=== PATIENT | female | born 1985 | race Two or more races ===

== ENCOUNTER → 2020-06-02 | Emergency (ER) | payer OTHER ==
[~2020-06-02] VITALS: Ht 170.2 cm; Wt 87.5 kg
== END | disposition home or self-care (01) ==
LOC: ER 18:16
DX: S00.83XA Contusion of other part of head, initial encounter (principal); S80.02XA Contusion of left knee, initial encounter; W18.39XA Other fall on same level, initial encounter; Y93.01 Activity, walking, marching and hiking; Y92.480 Sidewalk as the place of occurrence of the external cause; Y99.8 Other external cause status

== ENCOUNTER 2021-08-10 13:39 | Inpatient (IN) | payer OTHER ==
[~2021-08-10] VITALS: Ht 170.2 cm; Wt 89.4 kg
--- NOTE | 2021-08-10 13:59 | NUR ---
SE RECIBE PTE FEMENINA DE 36 ANOS ALERTA Y ORIENTADA X3. PTE REFIERE JACKSON REUMATOLOGO LE ORDENO PASAR A JENNIFER EMERGENCIA DEBIDO A RESULTADOS DEL LABORATORIO INDICANDO BAJO CONTEO DE PLAQUETAS. SE ALEX SIGNOS VITALES Y SE TRASPORTA A CAMA 7.
--- NOTE | 2021-08-10 15:48 | NUR ---
PTE FEMENINA ES EVALUADA POR . SE ORIENTA SOBRE ORDENES DE [place] REFIERE COMPRENDER. SE EXTRAEN MUESTRAS DE LABORATORIOS Y SE CANALIZA VENA BAJO MEDIDAD ASEPTICAS. SE ADMINISTRAN LIQUIDOS INTRAVENSOS, BAJO MEDIDAS ASEPTICAS. PTE MANEJADA PRO RN BATISTA.
== END 2021-08-19 15:14 | disposition home or self-care (01) | DRG 813 ==
LOC: ER 13:39 → MEDJ 22:52 → SEC-K 22:52 → MEDJ 08-11 17:54
PROVIDERS: ADMIT Internal Medicine; ATTEND Internal Medicine
PROC: 30233R1 Transfusion of Nonautologous Platelets into Peripheral Vein, Percutaneous Approach (ICD-10-PCS; principal; 2021-08-11)
DX: D69.6 Thrombocytopenia, unspecified (principal); M33.20 Polymyositis, organ involvement unspecified; D68.8 Other specified coagulation defects; E53.8 Deficiency of other specified B group vitamins; Z20.822 Contact with and (suspected) exposure to COVID-19

== ENCOUNTER 2021-09-16 07:01 | Outpatient (CLI) | payer OTHER | END 2021-09-16 07:03 | disposition home or self-care (01) | LOC: LAB 07:01 | PROVIDERS: ATTEND Internal Medicine Hematology & Oncology | DX: M32.19 Other organ or system involvement in systemic lupus erythematosus (principal); M33.12 Other dermatomyositis with myopathy; D50.8 Other iron deficiency anemias; R79.9 Abnormal finding of blood chemistry, unspecified; I10 Essential (primary) hypertension; R74.02 Elevation of levels of lactic acid dehydrogenase [LDH]; K76.89 Other specified diseases of liver; M33.22 Polymyositis with myopathy; D69.6 Thrombocytopenia, unspecified; D68.32 Hemorrhagic disorder due to extrinsic circulating anticoagulants; D51.3 Other dietary vitamin B12 deficiency anemia; M35.89 Other specified systemic involvement of connective tissue ==

== ENCOUNTER 2021-10-18 09:55 | Outpatient (CLI) | payer OTHER ==
[2021-10-18] MEDS ORDERED: PREDNISONE 10 MG (18:35)
[2021-10-19] MEDS ORDERED: PROAIR HFA8.5 GM (08:27)
[2021-10-19] MEDS ORDERED: PREDNISONE10 M2 (08:27)
[2021-10-19] MEDS ORDERED: WIXELA 250-501 EACH (08:27)
[2021-10-19] MEDS ORDERED: CYANOCOBAL1000 MCG/1 (08:27)
== END 2021-10-18 13:31 | disposition home or self-care (01) ==
LOC: LAB 09:55
PROVIDERS: ATTEND Internal Medicine Hematology & Oncology
DX: D50.8 Other iron deficiency anemias (principal); R79.9 Abnormal finding of blood chemistry, unspecified; I10 Essential (primary) hypertension; R74.02 Elevation of levels of lactic acid dehydrogenase [LDH]; K76.89 Other specified diseases of liver; M33.22 Polymyositis with myopathy; M35.89 Other specified systemic involvement of connective tissue; D69.6 Thrombocytopenia, unspecified; D68.32 Hemorrhagic disorder due to extrinsic circulating anticoagulants; D51.3 Other dietary vitamin B12 deficiency anemia

== ENCOUNTER 2021-10-18 16:27 | Inpatient (IN) | payer OTHER ==
[~2021-10-18] VITALS: Ht 172.7 cm; Wt 93.4 kg
--- NOTE | 2021-10-18 18:32 | NUR ---
PTE SE RECIBE POR PLAQUETAS BAJAS REFIERE PTE.
[2021-10-18] MEDS ORDERED: PREDNISONE 10 MG (18:35)
--- NOTE | 2021-10-18 20:44 | NUR ---
PTE ALERTA Y ORIENTADA X3 EN JOHANN CON BARANDAS ELEVADAS. SE LE ALEX MUESTRAS DE LAB. RONNY ORDEN MEDICA BAJO MEDIDAS ASEPTICAS. SE CANALIZA EN MANO DERECHA AREA SHAMAR DE EDEMA Y DE ENROJECIMIENTO. SE LE ADMINISTRAN MEDICAMENTOS Y SE EDUCA SOBRE TRATAMIENTO MEDICO. SE LLAMA A BANCO DE VJ Y SE LE NOTIFICA A ORDEN DE TRANSFUSE 10 UNIT PLATELETS A LAS 7:51PM. SE ALEX TUBOS PILOTOS Y SE LLEVAN A LABORATORIO. PTE FIRMA CONSENTIMIENTO PARA TRANSFUSION DE VJ.
[2021-10-19] MEDS ORDERED: CYANOCOBAL1000 MCG/1 (08:27)
[2021-10-19] MEDS ORDERED: PROAIR HFA8.5 GM (08:27)
[2021-10-19] MEDS ORDERED: WIXELA 250-501 EACH (08:27)
[2021-10-19] MEDS ORDERED: PREDNISONE10 M2 (08:27)
== END 2021-10-22 17:08 | disposition home or self-care (01) | DRG 547 ==
LOC: ER 16:27 → MEDI 23:14
PROVIDERS: ADMIT Internal Medicine; ATTEND Internal Medicine
PROC: 30233R1 Transfusion of Nonautologous Platelets into Peripheral Vein, Percutaneous Approach (ICD-10-PCS; principal; 2021-10-19)
PROC: 30233N1 Transfusion of Nonautologous Red Blood Cells into Peripheral Vein, Percutaneous Approach (ICD-10-PCS; 2021-10-19)
DX: M33.20 Polymyositis, organ involvement unspecified (principal); D69.6 Thrombocytopenia, unspecified

== ENCOUNTER 2021-10-31 11:22 | Outpatient (CLI) | payer OTHER ==
[~2021-10-31 11:22] MED LIST: CYANOCOBAL1000 MCG/1; PREDNISONE 10 MG; PREDNISONE10 M2; PROAIR HFA8.5 GM; WIXELA 250-501 EACH
== END 2021-10-31 13:05 | disposition home or self-care (01) ==
LOC: LAB 11:22
PROVIDERS: ATTEND Internal Medicine Hematology & Oncology
DX: D50.8 Other iron deficiency anemias (principal); R79.9 Abnormal finding of blood chemistry, unspecified; I10 Essential (primary) hypertension; R74.02 Elevation of levels of lactic acid dehydrogenase [LDH]; K76.89 Other specified diseases of liver; M33.22 Polymyositis with myopathy; D69.6 Thrombocytopenia, unspecified; D68.32 Hemorrhagic disorder due to extrinsic circulating anticoagulants; D51.3 Other dietary vitamin B12 deficiency anemia; M35.89 Other specified systemic involvement of connective tissue; M33.12 Other dermatomyositis with myopathy

== ENCOUNTER 2021-11-17 07:17 | Outpatient (CLI) | payer OTHER | END 2021-11-17 07:36 | disposition home or self-care (01) | LOC: LAB 07:17 | PROVIDERS: ATTEND Internal Medicine Hematology & Oncology | DX: D69.6 Thrombocytopenia, unspecified (principal); E78.00 Pure hypercholesterolemia, unspecified ==

== ENCOUNTER 2021-12-19 10:26 | Outpatient (CLI) | payer OTHER | END 2021-12-19 11:31 | disposition home or self-care (01) | LOC: LAB 10:26 | PROVIDERS: ATTEND Internal Medicine Hematology & Oncology | DX: M33.20 Polymyositis, organ involvement unspecified (principal); D69.49 Other primary thrombocytopenia; E55.9 Vitamin D deficiency, unspecified; Z13.29 Encounter for screening for other suspected endocrine disorder; M32.19 Other organ or system involvement in systemic lupus erythematosus; M33.12 Other dermatomyositis with myopathy; D50.8 Other iron deficiency anemias; D69.6 Thrombocytopenia, unspecified; D68.8 Other specified coagulation defects; D69.1 Qualitative platelet defects; M33.22 Polymyositis with myopathy; M35.89 Other specified systemic involvement of connective tissue; D68.32 Hemorrhagic disorder due to extrinsic circulating anticoagulants; D51.3 Other dietary vitamin B12 deficiency anemia ==

== ENCOUNTER 2021-12-23 14:08 | Outpatient (CLI) | payer OTHER | END 2021-12-23 14:11 | disposition home or self-care (01) | LOC: LAB 14:08 | PROVIDERS: ATTEND Internal Medicine | DX: M33.20 Polymyositis, organ involvement unspecified (principal); D69.49 Other primary thrombocytopenia; E55.9 Vitamin D deficiency, unspecified; Z13.29 Encounter for screening for other suspected endocrine disorder ==

== ENCOUNTER 2021-12-31 07:51 | Outpatient (CLI) | payer OTHER | END 2021-12-31 08:01 | disposition home or self-care (01) | LOC: LAB 07:51 | PROVIDERS: ATTEND Internal Medicine | DX: D68.8 Other specified coagulation defects (principal); D64.9 Anemia, unspecified; I73.00 Raynaud's syndrome without gangrene ==

== ENCOUNTER 2022-02-22 06:21 | Outpatient (CLI) | payer OTHER ==
[~2022-02-22 06:21] MED LIST changes: -PREDNISONE10 M2; +PREDNISONE10 M2 PO
== END 2022-02-22 06:22 | disposition home or self-care (01) ==
LOC: LAB 06:21
PROVIDERS: ATTEND Internal Medicine Hematology & Oncology
DX: D50.8 Other iron deficiency anemias (principal); D69.6 Thrombocytopenia, unspecified; I10 Essential (primary) hypertension; R74.02 Elevation of levels of lactic acid dehydrogenase [LDH]; K76.89 Other specified diseases of liver; M33.22 Polymyositis with myopathy; M35.89 Other specified systemic involvement of connective tissue; D68.32 Hemorrhagic disorder due to extrinsic circulating anticoagulants; D51.3 Other dietary vitamin B12 deficiency anemia; M32.19 Other organ or system involvement in systemic lupus erythematosus; M33.12 Other dermatomyositis with myopathy

== ENCOUNTER 2022-02-23 10:48 | Inpatient (IN) | payer OTHER ==
[~2022-02-23] VITALS: Ht 170.2 cm; Wt 104.3 kg
--- NOTE | 2022-02-23 11:36 | NUR ---
PTE ALERTA Y ORIENTADA EN RAEGAN MELISSA ESFERAS, REFIERE SHANIQUA SIDO REFERIDA A ER POR PLT BAJAS (20,000) RONNY LABORATORIOS REALIZADOS EN EL FREDA DE EMILEE. AL MOMENTO NO REFIERE SINTOMAS. SE UBICA EN AREA DE OBSERVACION.
--- NOTE | 2022-02-23 12:19 | NUR ---
PTE EVALUADA POR EL DR JEAN QUIEN ORDENA EL [place]. SE ORIENTA SOBRE EL TX ORDENADO, LO CUAL REFIERE ENTENDER, SE REALIZAN PRUEBAS DE LABORATORIO Y SE ADMINISTRA MEDICAMENTO RONNY ORDEN MEDICA Y SIGUIENDO MEDIDAS ASEPTICAS. PENDIENTE CONSULTA CON DR Sammy BATISTA. SE MANTIENE BAJO OBSERVACION.
[2022-02-24] MEDS ORDERED: HYDROCORTISONE-57 GM (08:15)
[2022-02-24] MEDS ORDERED: ONDANSETRON4 MG/2 M5 (08:15)
[2022-02-27] MEDS ORDERED: PEPCID AC20 MG PO (08:23)
[2022-02-27] MEDS ORDERED: PREDNISONE20 MG PO (08:23)
[2022-02-27] MEDS ORDERED: PROTONIX40 MG PO (08:24)
== END 2022-02-27 11:35 | disposition home or self-care (01) | DRG 813 ==
LOC: ER 10:48 → SURH 16:21 → MEDI 16:21 → SURH 21:03
PROVIDERS: ADMIT Internal Medicine; ATTEND Internal Medicine
PROC: B020ZZZ Computerized Tomography (CT Scan) of Brain (ICD-10-PCS; principal; 2022-02-23)
DX: D69.3 Immune thrombocytopenic purpura (principal); M33.20 Polymyositis, organ involvement unspecified; K62.5 Hemorrhage of anus and rectum; K64.9 Unspecified hemorrhoids; D51.3 Other dietary vitamin B12 deficiency anemia; R51.9 Headache, unspecified; Z20.822 Contact with and (suspected) exposure to COVID-19

== ENCOUNTER 2022-03-21 07:19 | Outpatient (CLI) | payer OTHER ==
[~2022-03-21 07:19] MED LIST changes: +HYDROCORTISONE-57 GM; +ONDANSETRON4 MG/2 M5; +PEPCID AC20 MG PO; +PREDNISONE20 MG PO; +PROTONIX40 MG PO
== END 2022-03-21 07:27 | disposition home or self-care (01) ==
LOC: LAB 07:19
PROVIDERS: ATTEND Internal Medicine Hematology & Oncology
DX: D69.3 Immune thrombocytopenic purpura (principal)

== ENCOUNTER 2022-04-26 07:04 | Outpatient (CLI) | payer OTHER | END 2022-04-26 07:13 | disposition home or self-care (01) | LOC: LAB 07:04 | PROVIDERS: ATTEND Internal Medicine Hematology & Oncology | DX: D69.49 Other primary thrombocytopenia (principal); M35.89 Other specified systemic involvement of connective tissue ==

== ENCOUNTER → 2022-06-05 06:26 | Outpatient (CLI) | payer OTHER | END | disposition home or self-care (01) | LOC: LAB 06:26 | PROVIDERS: ATTEND Internal Medicine Hematology & Oncology | DX: D69.6 Thrombocytopenia, unspecified (principal) ==

== ENCOUNTER 2022-06-19 07:00 | Outpatient (CLI) | payer OTHER | END 2022-06-19 08:18 | disposition home or self-care (01) | LOC: LAB 07:00 | PROVIDERS: ATTEND Internal Medicine Hematology & Oncology | DX: D50.8 Other iron deficiency anemias (principal); I10 Essential (primary) hypertension; R74.02 Elevation of levels of lactic acid dehydrogenase [LDH]; K76.89 Other specified diseases of liver; D68.8 Other specified coagulation defects; M33.22 Polymyositis with myopathy; M35.89 Other specified systemic involvement of connective tissue; D69.6 Thrombocytopenia, unspecified; D68.32 Hemorrhagic disorder due to extrinsic circulating anticoagulants; D51.3 Other dietary vitamin B12 deficiency anemia; I71.00 Dissection of unspecified site of aorta ==

== ENCOUNTER → 2022-07-18 06:59 | Outpatient (CLI) | payer OTHER | END | disposition home or self-care (01) | LOC: LAB 06:59 | PROVIDERS: ATTEND Internal Medicine Hematology & Oncology | DX: D50.8 Other iron deficiency anemias (principal); I10 Essential (primary) hypertension; R74.02 Elevation of levels of lactic acid dehydrogenase [LDH]; K76.89 Other specified diseases of liver; D69.6 Thrombocytopenia, unspecified; M33.22 Polymyositis with myopathy; M35.89 Other specified systemic involvement of connective tissue; D68.32 Hemorrhagic disorder due to extrinsic circulating anticoagulants; D51.3 Other dietary vitamin B12 deficiency anemia; I73.00 Raynaud's syndrome without gangrene; E03.9 Hypothyroidism, unspecified ==

== ENCOUNTER 2022-07-28 07:09 | Outpatient (CLI) | payer OTHER | END 2022-07-28 07:11 | disposition home or self-care (01) | LOC: LAB 07:09 | PROVIDERS: ATTEND Surgery | DX: K62.5 Hemorrhage of anus and rectum (principal); K64.2 Third degree hemorrhoids; K62.89 Other specified diseases of anus and rectum; K64.4 Residual hemorrhoidal skin tags ==

== ENCOUNTER 2022-08-06 15:20 | Emergency (ER) | payer OTHER ==
[~2022-08-06] VITALS: Ht 170.2 cm; Wt 111.1 kg
[~2022-08-06 15:20] MED LIST changes: +OXYC1TAB9 PO
== END 2022-08-06 16:47 | disposition home or self-care (01) ==
LOC: ER 15:20
DX: R33.9 Retention of urine, unspecified (principal)

== ENCOUNTER 2022-08-08 16:24 | Emergency (ER) | payer OTHER ==
[~2022-08-08] VITALS: Ht 175.3 cm; Wt 111.1 kg
== END 2022-08-09 00:28 | disposition home or self-care (01) ==
LOC: ER 16:24
DX: R33.9 Retention of urine, unspecified (principal)

== ENCOUNTER 2022-08-31 09:43 | Outpatient (CLI) | payer OTHER | END 2022-08-31 09:55 | disposition home or self-care (01) | LOC: LAB 09:43 | PROVIDERS: ATTEND Internal Medicine Hematology & Oncology | DX: D50.8 Other iron deficiency anemias (principal); I10 Essential (primary) hypertension; R74.02 Elevation of levels of lactic acid dehydrogenase [LDH]; K76.89 Other specified diseases of liver; D68.8 Other specified coagulation defects; D69.1 Qualitative platelet defects; M33.22 Polymyositis with myopathy; M35.89 Other specified systemic involvement of connective tissue; D69.6 Thrombocytopenia, unspecified; D68.32 Hemorrhagic disorder due to extrinsic circulating anticoagulants; D51.3 Other dietary vitamin B12 deficiency anemia; I73.00 Raynaud's syndrome without gangrene; M33.12 Other dermatomyositis with myopathy; M32.19 Other organ or system involvement in systemic lupus erythematosus; E28.9 Ovarian dysfunction, unspecified ==

== ENCOUNTER 2022-09-06 08:56 | Outpatient (CLI) | payer OTHER | END 2022-09-06 09:09 | disposition home or self-care (01) | LOC: SONOGRAMA 08:56 | PROVIDERS: ATTEND Obstetrics & Gynecology Reproductive Endocrinology | DX: N93.8 Other specified abnormal uterine and vaginal bleeding (principal) ==

== ENCOUNTER → 2023-02-05 06:44 | Outpatient (CLI) | payer OTHER ==
[2023-02-05 08:36] LABS: HEMATOCRIT 37.9 % (36.0-45.00); HEMOGLOBIN 12.6 g/dL (12.0-15.00); MEAN CORPUSCULAR HEMOGLOBIN 27.5 pg (27.00-32.0); MEAN CORPUSCULAR HGB CONC 33.2 g/dl (32.0-36.0); PLATELET COUNT 296 K/uL (150-450); RED BLOOD COUNT 4.57 M/uL (4.00-6.00); RED CELL DISTRIBUTION WIDTH 14.8 % (11.5-14.5)
[2023-02-05 09:03] LABS: % SATURACION 6.6 % (15-50); ALBUMIN 3.6 gm/dL (3.4-5.0); BILIRUBIN TOTAL 0.21 mg/dL (0.3-1.2); CALCIUM 8.8 mg/dL (8.5-10.1); CREATININE SERUM 0.66 mg/dL (0.55-1.02); FERRITIN 20.5 NG/ML (8-252); GFR 99.7; GLOBULINA 3.1 G/DL (2.4-3.5); POTASSIUM 3.95 mEq/L (3.5-5.1); TOTAL PROTEIN 6.7 gm/dL (6.4-8.2)
[2023-02-05 09:49] LABS: MANUAL PLATELET COUNT 454
[2023-02-05 11:18] LABS: FOLIC ACID 13.49 ng/ml (4.78-20)
== END | disposition home or self-care (01) ==
LOC: LAB 06:44
PROVIDERS: ATTEND Internal Medicine Hematology & Oncology
DX: D50.8 Other iron deficiency anemias (principal); I10 Essential (primary) hypertension; R74.02 Elevation of levels of lactic acid dehydrogenase [LDH]; K76.89 Other specified diseases of liver; D69.6 Thrombocytopenia, unspecified; M33.22 Polymyositis with myopathy; D68.32 Hemorrhagic disorder due to extrinsic circulating anticoagulants; D51.3 Other dietary vitamin B12 deficiency anemia; I73.00 Raynaud's syndrome without gangrene; M35.89 Other specified systemic involvement of connective tissue; D68.59 Other primary thrombophilia; D68.51 Activated protein C resistance

== ENCOUNTER → 2024-03-08 10:39 | Outpatient (CLI) | payer OTHER ==
[2024-03-08 12:46] LABS: HEMATOCRIT 41.3 % (36.0-45.00); HEMOGLOBIN 13.8 g/dL (12.0-15.00); MEAN CELL VOLUME 82.1 fL (80.00-100.00); MEAN CORPUSCULAR HEMOGLOBIN 27.4 pg (27.00-32.0); MEAN CORPUSCULAR HGB CONC 33.4 g/dl (32.0-36.0); PLATELET COUNT 287 K/uL (150-450); RED BLOOD COUNT 5.03 M/uL (4.00-6.00); RED CELL DISTRIBUTION WIDTH 14.5 % (11.5-14.5)
[2024-03-08 12:59] LABS: % SATURACION 15.1 % (15-50); ALBUMIN 4.1 gm/dL (3.4-5.0); BILIRUBIN TOTAL 0.6 mg/dL (0.3-1.2); CALCIUM 9.1 mg/dL (8.5-10.1); CREATININE SERUM 0.62 mg/dL (0.55-1.02); FERRITIN 27.3 NG/ML (8-252); GFR 106.61; GLOBULINA 3.2 G/DL (2.4-3.5); POTASSIUM 3.92 mEq/L (3.5-5.1); TOTAL PROTEIN 7.3 gm/dL (6.4-8.2)
[2024-03-10 08:31] LABS: MANUAL PLATELET COUNT 418
[2024-03-10 08:33] LABS: PLATELET ESTIMATE NORMAL (NORMAL)
[2024-03-10 12:33] LABS: FOLIC ACID 8.25 ng/ml (4.78-20)
[2024-03-11 10:04] LABS: COMPLEMENT C3 122 mg/dL (82-167); COMPLEMENT C4 20 mg/dL (12-38); TRANSFERIN 244 mg/dL (192-364)
[2024-03-11 14:04] LABS: DNA AB DOUBLE STRABDED 1 IU/mL (0-9)
[2024-03-13 16:04] LABS: ANTI-THROMBIN III 119 % (75-135); PROTEIN C ACTIVITY 125 % (73-180); PROTEIN S ACTIVITY 88 % (63-140); Protein s 79 % (60-150); Protein s free 91 % (61-136)
[2024-03-13 18:08] LABS: PROTEIN C ANTIGEN 115 % (60-150)
[2024-03-14 16:04] LABS: dRVVT 37.6 sec (0.0-47.0); interp Comment: (.); ptt-la 43.8 sec (0.0-43.5)
== END | disposition home or self-care (01) ==
LOC: LAB 10:39
PROVIDERS: ATTEND Internal Medicine Hematology & Oncology
DX: M33.22 Polymyositis with myopathy (principal); D69.6 Thrombocytopenia, unspecified; D68.32 Hemorrhagic disorder due to extrinsic circulating anticoagulants; D51.3 Other dietary vitamin B12 deficiency anemia; I73.00 Raynaud's syndrome without gangrene; M35.89 Other specified systemic involvement of connective tissue; D50.8 Other iron deficiency anemias; R79.9 Abnormal finding of blood chemistry, unspecified; I10 Essential (primary) hypertension; R74.02 Elevation of levels of lactic acid dehydrogenase [LDH]; K76.89 Other specified diseases of liver; D68.59 Other primary thrombophilia; D68.61 Antiphospholipid syndrome; D68.69 Other thrombophilia; D68.312 Antiphospholipid antibody with hemorrhagic disorder; M33.12 Other dermatomyositis with myopathy; M33.19 Other dermatomyositis with other organ involvement